=== PATIENT | female | born 1965 | race Caucasian/White ===

== ENCOUNTER 2016-11-16 18:14 | Inpatient (IN) | payer MEDICAID ==
[~2016-11-16] VITALS: Ht 162.6 cm; Wt 66.9 kg
[2016-11-16] MEDS ORDERED: ALBUTEROL/IPRATROPIUM 2.5MG/0.5MG, 3 ML ONE (18:39)
[2016-11-16] MEDS ORDERED: methylPREDNISolone SOD SUCC 125 MG/2 ML IVP ONE (19:00)
[2016-11-16] MEDS ORDERED: SODIUM CHLORIDE 0.9% 1,000ML IVBOLUS ONE (19:00)
[2016-11-16] MEDS ORDERED: MAGNESIUM SULFATE PMX 2GM/50ML 50 ML IVPB ONE (19:00)
[2016-11-16] MEDS ORDERED: methylPREDNISolone SOD SUCC 125 MG/2 ML ONE (19:08)
[2016-11-16 19:34] LABS: BLOOD UREA NITROGEN 18 mg/dL (7-18)
[2016-11-16] MEDS ORDERED: ALPR1TAB2 PO (20:51)
[2016-11-16] MEDS ORDERED: ASPI-496 PO (20:51)
[2016-11-16] MEDS ORDERED: ALBU2.5V NEB (20:51)
[2016-11-16] MEDS ORDERED: TIOT18CA INH (20:51)
[2016-11-16] MEDS ORDERED: ALBU18HF INH (20:51)
[2016-11-16] MEDS ORDERED: DUO-NEB (20:51)
[2016-11-16] MEDS ORDERED: BUDE10.2 INH (20:51)
[2016-11-16 22:58] VITALS: BP 138/90
[2016-11-16] MEDS ORDERED: TEMPLATE NON-FORMULARY MED. (Albuterol Sulfate (Ventolin Hfa) 2 PUFFS) INH PRN (23:00)
[2016-11-16] MEDS ORDERED: ALBUTEROL/IPRATROPIUM 2.5MG/0.5MG, 3 ML HHN SCH (23:30)
[2016-11-16] MEDS ORDERED: ENOXAPARIN 40 MG/0.4 ML SQ SCH (23:30)
[2016-11-16 23:47] VITALS: BP 138/90
[2016-11-17] MEDS: ACETAMINOPHEN 325 MG TABLET PO PRN (00:37)
[2016-11-17] MEDS: TEMAZEPAM 15 MG CAPSULE PO PRN ×2 (00:37→21:48)
[2016-11-17 02:00] VITALS: BP 128/82
[2016-11-17] MEDS: methylPREDNISolone SOD SUCC 40 MG/ML IVPush SCH ×4 (02:44→20:36)
[2016-11-17] MEDS: ALBUTEROL/IPRATROPIUM 2.5MG/0.5MG, 3 ML NPPB SCH ×4 (04:03→20:29)
[2016-11-17 05:34] LABS: BLOOD UREA NITROGEN 22 mg/dL (7-18)
[2016-11-17 07:56] VITALS: BP 129/85
[2016-11-17] MEDS: ALPRazolam 1MG TABLET PO SCH ×3 (08:46→20:36)
[2016-11-17] MEDS: ASPIRIN 81 MG TABLET EC PO SCH (08:46)
[2016-11-17] MEDS ORDERED: IPRATROPIUM 0.5 MG/2.5 ML INHA HHN SCH (09:00)
[2016-11-17] MEDS: FLUTICASONE/VILANTEROL 200-25MCG/INH INH SCH (12:39)
[2016-11-17 13:41] VITALS: BP 119/70
[2016-11-17 20:00] VITALS: BP 129/78
[2016-11-17] MEDS: ENOXAPARIN 40 MG/0.4 ML SQ SCH (20:36)
[2016-11-17] MEDS ORDERED: CALCIUM CARBONATE 500 MG TAB.CHEW PO ONE (21:00)
[2016-11-17] MEDS: ALBUTEROL SULFATE 2.5 MG/3 ML NPPB PRN (23:18)
[2016-11-18 02:00] VITALS: BP 126/77
[2016-11-18] MEDS: methylPREDNISolone SOD SUCC 40 MG/ML IVPush SCH ×2 (02:25→09:28)
[2016-11-18] MEDS: ALBUTEROL/IPRATROPIUM 2.5MG/0.5MG, 3 ML NPPB SCH ×7 (03:48→22:31)
[2016-11-18 05:38] LABS: BLOOD UREA NITROGEN 17 mg/dL (7-18)
[2016-11-18] MEDS ORDERED: ALBUTEROL/IPRATROPIUM 2.5MG/0.5MG, 3 ML NPPB SCH (06:00)
[2016-11-18 07:42] VITALS: BP 147/83
[2016-11-18] MEDS: FLUTICASONE/VILANTEROL 200-25MCG/INH INH SCH (09:28)
[2016-11-18] MEDS: ALPRazolam 1MG TABLET PO SCH (09:28)
[2016-11-18] MEDS: ASPIRIN 81 MG TABLET EC PO SCH (09:28)
[2016-11-18] MEDS: AZITHROMYCIN 500 MG TABLET PO SCH (11:00)
[2016-11-18 14:00] VITALS: BP 145/87
[2016-11-18] MEDS: ALPRazolam 1MG TABLET PO PRN (19:50)
[2016-11-18] MEDS: ENOXAPARIN 40 MG/0.4 ML SQ SCH (19:50)
[2016-11-18 20:00] VITALS: BP_SYST 130; BP_SYST 160; BP_DIAS 71; BP_DIAS 88
[2016-11-18] MEDS: TEMAZEPAM 15 MG CAPSULE PO PRN (21:09)
[2016-11-18] MEDS: CALCIUM CARBONATE 500 MG TAB.CHEW PO PRN (21:10)
[2016-11-19] MEDS: ALBUTEROL/IPRATROPIUM 2.5MG/0.5MG, 3 ML NPPB SCH ×6 (00:30→21:44)
[2016-11-19 02:00] VITALS: BP 124/77
[2016-11-19 05:23] LABS: BLOOD UREA NITROGEN 24 mg/dL (7-18)
[2016-11-19 06:28] LABS: DIFF TOTAL CELLS COUNTED 100 CELL DIFF
[2016-11-19 06:33] LABS: VERIFY COUNTS? YES
[2016-11-19 07:05] VITALS: BP 118/74
[2016-11-19] MEDS: ASPIRIN 81 MG TABLET EC PO SCH (08:54)
[2016-11-19] MEDS: FLUTICASONE/VILANTEROL 200-25MCG/INH INH SCH (08:54)
[2016-11-19] MEDS: AZITHROMYCIN 500 MG TABLET PO SCH (08:55)
[2016-11-19] MEDS ORDERED: OMNIPAQUE 350 MG/ML, 75ML BOTTLE ONE (09:07)
[2016-11-19] MEDS: ALPRazolam 1MG TABLET PO PRN ×3 (09:18→22:07)
[2016-11-19] MEDS: CALCIUM CARBONATE 500 MG TAB.CHEW PO PRN ×2 (12:05→20:51)
[2016-11-19] MEDS: ALBUTEROL SULFATE 2.5 MG/3 ML NPPB PRN (12:16)
[2016-11-19 12:55] VITALS: BP 151/87
[2016-11-19] MEDS: FUROSEMIDE 40 MG/4 ML IV SCH (14:49)
[2016-11-19] MEDS: methylPREDNISolone SOD SUCC 125 MG/2 ML IV SCH ×2 (14:50→20:50)
[2016-11-19 20:00] VITALS: BP 123/85
[2016-11-19] MEDS: ENOXAPARIN 40 MG/0.4 ML SQ SCH (20:51)
[2016-11-19] MEDS: TEMAZEPAM 15 MG CAPSULE PO PRN (20:51)
[2016-11-20] MEDS: ALBUTEROL/IPRATROPIUM 2.5MG/0.5MG, 3 ML NPPB SCH ×6 (01:50→22:15)
[2016-11-20 02:00] VITALS: BP 125/86
[2016-11-20] MEDS: methylPREDNISolone SOD SUCC 40 MG/ML IV SCH ×4 (05:00→22:33)
[2016-11-20 05:07] LABS: BLOOD UREA NITROGEN 26 mg/dL (7-18)
[2016-11-20 05:35] LABS: DIFF TOTAL CELLS COUNTED 100 CELL DIFF
[2016-11-20 05:36] LABS: VERIFY COUNTS? YES
[2016-11-20 07:51] VITALS: BP 131/86
[2016-11-20] MEDS: FLUTICASONE/VILANTEROL 200-25MCG/INH INH SCH (08:51)
[2016-11-20] MEDS: AZITHROMYCIN 500 MG TABLET PO SCH (08:52)
[2016-11-20] MEDS: FUROSEMIDE 40 MG/4 ML IV SCH (08:52)
[2016-11-20] MEDS: ASPIRIN 81 MG TABLET EC PO SCH (08:52)
[2016-11-20] MEDS: ALPRazolam 1MG TABLET PO PRN ×2 (08:56→20:16)
[2016-11-20] MEDS ORDERED: methylPREDNISolone SOD SUCC 40 MG/ML IV SCH (09:00)
[2016-11-20 14:00] VITALS: BP 121/85
[2016-11-20] MEDS: CALCIUM CARBONATE 500 MG TAB.CHEW PO PRN (16:58)
[2016-11-20 20:00] VITALS: BP 145/86
[2016-11-20] MEDS: ENOXAPARIN 40 MG/0.4 ML SQ SCH (20:15)
[2016-11-20] MEDS: TEMAZEPAM 15 MG CAPSULE PO PRN (22:07)
[2016-11-21] MEDS: ACETAMINOPHEN 325 MG TABLET PO PRN ×2 (00:29→08:05)
[2016-11-21] MEDS: ALBUTEROL/IPRATROPIUM 2.5MG/0.5MG, 3 ML NPPB SCH ×6 (00:35→22:20)
[2016-11-21 02:00] VITALS: BP 147/89
[2016-11-21] MEDS: methylPREDNISolone SOD SUCC 40 MG/ML IV SCH (04:54)
[2016-11-21 06:11] LABS: ASPARTATE AMINO TRANSFERASE 9 U/L (15-37); BLOOD UREA NITROGEN 28 mg/dL (7-18)
[2016-11-21 07:47] VITALS: BP 145/99
[2016-11-21] MEDS: FLUTICASONE/VILANTEROL 200-25MCG/INH INH SCH (08:05)
[2016-11-21] MEDS: AZITHROMYCIN 500 MG TABLET PO SCH (08:05)
[2016-11-21] MEDS: FUROSEMIDE 40 MG/4 ML IV SCH (08:06)
[2016-11-21] MEDS: CALCIUM CARBONATE 500 MG TAB.CHEW PO PRN (08:06)
[2016-11-21] MEDS: ALPRazolam 1MG TABLET PO PRN ×3 (08:06→21:30)
[2016-11-21] MEDS: ASPIRIN 81 MG TABLET EC PO SCH (08:06)
[2016-11-21] MEDS ORDERED: ACETYLCYSTEINE 600 MG CAPSULE PO SCH (10:00)
[2016-11-21 13:23] VITALS: BP 153/89
[2016-11-21 19:11] VITALS: BP 154/89
[2016-11-21] MEDS: ENOXAPARIN 40 MG/0.4 ML SQ SCH (20:46)
[2016-11-21] MEDS ORDERED: methylPREDNISolone SOD SUCC 125 MG/2 ML IV SCH (21:00)
[2016-11-21] MEDS: TEMAZEPAM 15 MG CAPSULE PO PRN (21:30)
[2016-11-21] MEDS: ACETYLCYSTEINE 10%, 4ML IPPB SCH (22:20)
[2016-11-22] MEDS: ALBUTEROL/IPRATROPIUM 2.5MG/0.5MG, 3 ML NPPB SCH ×5 (02:12→23:00)
[2016-11-22 02:50] VITALS: BP 155/72
[2016-11-22 06:00] LABS: DIFF TOTAL CELLS COUNTED 100 CELL DIFF
[2016-11-22 06:10] LABS: BLOOD UREA NITROGEN 33 mg/dL (7-18)
[2016-11-22 06:17] LABS: VERIFY COUNTS? YES
[2016-11-22 07:38] VITALS: BP_SYST 106; BP_SYST 137; BP_DIAS 66; BP_DIAS 85
[2016-11-22] MEDS: ACETYLCYSTEINE 10%, 4ML IPPB SCH ×3 (09:00→20:13)
[2016-11-22] MEDS: AZITHROMYCIN 500 MG TABLET PO SCH (09:00)
[2016-11-22] MEDS: FLUTICASONE/VILANTEROL 200-25MCG/INH INH SCH (09:34)
[2016-11-22] MEDS: ALPRazolam 1MG TABLET PO PRN ×2 (09:43→20:58)
[2016-11-22] MEDS: ASPIRIN 81 MG TABLET EC PO SCH (09:55)
[2016-11-22] MEDS: CALCIUM CARBONATE 500 MG TAB.CHEW PO PRN (09:55)
[2016-11-22] MEDS: FUROSEMIDE 20 MG TABLET PO SCH (09:56)
[2016-11-22] MEDS: ALBUTEROL SULFATE 2.5 MG/3 ML NPPB PRN (12:44)
[2016-11-22 12:59] VITALS: BP 145/87
[2016-11-22 20:57] VITALS: BP 148/84
[2016-11-22] MEDS: ENOXAPARIN 40 MG/0.4 ML SQ SCH (21:00)
[2016-11-22] MEDS: TEMAZEPAM 15 MG CAPSULE PO PRN (23:39)
[2016-11-23 01:05] VITALS: BP 132/79
[2016-11-23] MEDS: ALBUTEROL/IPRATROPIUM 2.5MG/0.5MG, 3 ML NPPB SCH ×3 (03:00→10:47)
[2016-11-23] MEDS: ACETAMINOPHEN 325 MG TABLET PO PRN (04:52)
[2016-11-23 06:15] LABS: BLOOD UREA NITROGEN 30 mg/dL (7-18)
[2016-11-23 06:20] LABS: ASPARTATE AMINO TRANSFERASE 11 U/L (15-37)
[2016-11-23 06:49] LABS: DIFF TOTAL CELLS COUNTED 100 CELL DIFF
[2016-11-23 06:50] LABS: VERIFY COUNTS? YES
[2016-11-23] MEDS: ACETYLCYSTEINE 10%, 4ML IPPB SCH (06:58)
[2016-11-23 07:59] VITALS: BP 111/70
[2016-11-23] MEDS: FLUTICASONE/VILANTEROL 200-25MCG/INH INH SCH (08:46)
[2016-11-23] MEDS: ASPIRIN 81 MG TABLET EC PO SCH (08:46)
[2016-11-23] MEDS: AZITHROMYCIN 500 MG TABLET PO SCH (08:46)
[2016-11-23] MEDS: FUROSEMIDE 20 MG TABLET PO SCH (08:46)
[2016-11-23] MEDS ORDERED: PRED10TA PO (13:17)
== END 2016-11-23 15:10 | disposition home or self-care (01) | DRG 189 ==
LOC: ED 20:55 → EDIP 20:56 → ED 21:12 → 4EST 22:52
PROVIDERS: ADMIT Internal Medicine; ATTEND Internal Medicine
DX: J96.21 Acute and chronic respiratory failure with hypoxia (principal); J44.1 Chronic obstructive pulmonary disease with (acute) exacerbation; D68.69 Other thrombophilia; Z87.01 Personal history of pneumonia (recurrent); Z82.49 Family history of ischemic heart disease and other diseases of the circulatory system; I48.2 Chronic atrial fibrillation; F17.210 Nicotine dependence, cigarettes, uncomplicated; Z99.81 Dependence on supplemental oxygen; Z90.49 Acquired absence of other specified parts of digestive tract; R73.9 Hyperglycemia, unspecified; T38.0X5A Adverse effect of glucocorticoids and synthetic analogues, initial encounter; D72.829 Elevated white blood cell count, unspecified
CPT/HCPCS: 36415; 71010; 71260; 76705; 80048; 80053; 81003; 82040; 83735; 85025; 87040; 87070; 87107; 87205; 93005; 94640; 96365; 96366; 96375; J1940; J7608; J7613; J7620; Q9967; J2920; J2930; J3475; J7030; J7512